=== PATIENT | male | born 1945 | race Caucasian/White ===

== ENCOUNTER 2022-08-22 09:35 | Outpatient (CLI) | payer MEDICARE, BC, SELFPAY ==
[2022-08-22 10:32] LABS: Chloride* 109 mmol/L (96-114); Potassium* 4.3 mmol/L (3.6-5.1); Sodium* 142 mmol/L (135-149)
[2022-08-22 10:35] LABS: Blood Urea Nitrogen* 15 mg/dL (7-30); Carbon Dioxide* 27 mmol/L (20-32); Cholesterol* 157 mg/dL (90-199); Creatinine* 0.8 mg/dL (0.5-1.5); Estimated Glomerular Filt Rate 91 ml/min
[2022-08-22 10:36] LABS: Calcium* 8.8 mg/dL (8.4-10.6); Glucose* 102 mg/dL (60-115); HDL Cholesterol* 49 mg/dL (>=40); LDL Cholesterol Calculated 88 mg/dL (<100); Triglycerides* 102 mg/dL (40-149)
[2022-08-22 11:15] LABS: PSA Screen* < 0.06 ng/mL (0.10-4.00)
== END 2022-08-22 09:36 | disposition home or self-care (01) ==
LOC: NFLDREF 09:35
PROVIDERS: PCP Family Medicine; Visit Provider Family Medicine
DX: E78.5 Hyperlipidemia, unspecified (principal); I10 Essential (primary) hypertension; R97.20 Elevated prostate specific antigen [PSA]
CPT/HCPCS: 80048; 80061; 84153

== ENCOUNTER 2023-06-11 09:14 | Outpatient (CLI) | payer MEDICARE, BC, SELFPAY ==
--- NOTE | 2023-06-11 09:15 | CRLHL7_ITS ---
For Patients: As a result of the 21st Century Cures Act, medical imaging exams and procedure reports are released immediately into your electronic medical record. You may view this report before your referring provider. If you have questions, please contact your health care provider. INDICATION: Low back pain. Spinal stenosis. TECHNIQUE: Multiplanar multisequence noncontrast MR images acquired through the lumbar spine. COMPARISON: None. FINDINGS: The lumbar lordosis is preserved. Vertebral heights maintained. No acute fracture. No T1 hypointense marrow replacing lesions. Normal conus terminates at L1-2. T12-L1: Mild disc degeneration. No spinal canal or neural foraminal narrowing. L1-2: Trace retrolisthesis. Moderate disc degeneration. Shallow circumferential disc bulge. No spinal canal or neural foraminal narrowing. L2-3: Mild retrolisthesis. Moderate disc degeneration and qmxg-dy-efnrrwrd disc height loss. Circumferential disc bulge. Mild facet arthropathy. Sxsl-bv-kdkedger spinal canal and left lateral recess narrowing. Mild bilateral neural foraminal narrowing. L3-4: Mild retrolisthesis. Moderately advanced disc degeneration and disc height loss. Moderate vertebral body edema. Posterior disc bulging and endplate spondylitic ridging. Mild left facet arthropathy. Thickening ligamentum flavum. Left dorsal synovial cyst measuring 7 mm. Chtu-zs-vyswnowu spinal canal narrowing. Moderate left and zchm-jl-ksburhlu right lateral recess narrowing. Geab-cj-jbfbkisk left and mild right neural foraminal narrowing. L4-5: Grade 1 anterolisthesis measuring 6 mm. Moderately advanced disc degeneration and right eccentric disc height loss. Posterior disc bulge. Advanced facet arthropathy. Thickening ligamentum flavum. Severe spinal canal and lateral recess stenosis. Moderately severe right and moderate left neural foraminal narrowing. L5-S1: Moderate disc degeneration. Posterior disc bulge. Moderate bilateral facet arthropathy. No spinal canal or neural foraminal narrowing. Sacroiliac joint degenerative changes. Multiple T2 hyperdense lesions the kidneys, most typical for renal cysts. IMPRESSION: 1. At L4-5, grade anterolisthesis and advanced facet arthropathy contribute to severe spinal canal and lateral recess stenosis. Moderately severe right and moderate left neural foraminal stenosis. 2. At L3-4, moderate left and mild to moderate right lateral recess narrowing. Mild to moderate spinal canal narrowing. Moderate discogenic vertebral body edema. Dictated by Rob Coyle MD @ 06/12/2023 6:59:57 PM (Electronically Signed)
== END 2023-06-11 09:15 | disposition home or self-care (01) ==
PROVIDERS: PCP Family Medicine; Visit Provider Family Medicine
DX: M54.50 Low back pain, unspecified (principal); M51.35 Other intervertebral disc degeneration, thoracolumbar region; M51.36 Other intervertebral disc degeneration, lumbar region; R29.818 Other symptoms and signs involving the nervous system
CPT/HCPCS: 72148

== ENCOUNTER 2023-08-29 08:20 | Outpatient (CLI) | payer MEDICARE, BC, SELFPAY | END 2023-08-29 08:21 | disposition home or self-care (01) | LOC: NFLDREF 09-10 11:45 | PROVIDERS: PCP Family Medicine; Referring Provider Family Medicine; Visit Provider Family Medicine | DX: E78.5 Hyperlipidemia, unspecified (principal); C61 Malignant neoplasm of prostate; Z79.899 Other long term (current) drug therapy | CPT/HCPCS: 80053; 80061; G0103 ==

== ENCOUNTER 2024-05-27 06:59 | Emergency (ER) | payer MEDICARE, BC, SELFPAY ==
[2024-05-27] VITALS (17 sets, daily range): BP systolic 138–175; BP diastolic 86–118; PULSE 81–105; RESP 20; TEMP 35.7; O2SAT 94–97; BMI 37.3
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
--- NOTE | 2024-05-27 08:27 | CRLHL7_ITS ---
For Patients: As a result of the Century Cures Act, medical imaging exams and procedure reports are released immediately into your electronic medical record. You may view this report before your referring provider. If you have questions, please contact your health care provider. Indication: Heel pain. Technique: Two view(s) of the left calcaneus. Comparison: None available. Findings: Limited evaluation of alignment on nonweightbearing images. Joint spaces are maintained. No acute fracture is identified. There is a small posterior calcaneal enthesophyte at the Achilles tendon insertion. Mild soft tissue thickening in the region of the distal Achilles tendon. Mild generalized soft tissue swelling. Impression: 1. No acute osseous abnormality identified. 2. Posterior calcaneal enthesophyte with mild thickening of the distal Achilles tendon. This could be further evaluated with ultrasound or MRI as clinically indicated on a nonemergent basis. Dictated by Delia Morrell MD @ 05/27/2024 8:53:03 AM (Electronically Signed)
--- OUTSIDE RECORDS SUMMARY | 2024-05-27 08:29 | XMS_ITS | Clinical Summary ---
Author Organization [facility] Address [place], [place] [address] Care Team Providers Care Political Science Professor Name Role Phone Jcarlos Miles MD Primary Care Provider [phone] Allergies No known active allergies Medications Medication Sig Dispensed Refills Start Date End Date Status aspirin chewable 81 mg chewable tablet Take 81 mg by mouth. 06/16/2018 Active atorvastatin (LIPITOR) 20 mg tablet TK 1 T PO HS 4 03/30/2019 Active losartan (COZAAR) 25 mg tablet TK 1 T PO D 4 03/30/2019 Active omega 2-yos-als-fish oil 100-160-1,000 mg cap 05/18/2018 Active polyethylene glycoL (MIRALAX) 17 gram/dose powder 04/25/2018 Active allopurinoL (ZYLOPRIM) 100 mg tablet TK 1 T PO QD 05/10/2020 Active furosemide (LASIX) 20 mg tablet TAKE 1/2 TABLET BY MOUTH DAILY NEEDED 07/27/2020 Active tamsulosin (FLOMAX) 0.4 mg capsule 06/27/2020 Active CPAPIndications:JHONNY on CPAP CPAP machine for home use at pressure 11 cmw, nasal mask x1/3month with nasal cushion x2/mo 1 Each 11 06/26/2023 Active CPAPIndications:JHONNY on CPAP Humidifier chamber x 1,Nasal mask with cushion x 1 every 3 months, Nasal pillows 2 x every month, Standard tubing x 1 every 3 months, Headgear x 1 every 6 months, Filters: Disposable x 2 per month & Reusable x 1 per 6 months Chinstrap 1 every 6 months, Length of Need: 99 months, Frequency of use: Daily 1 Each 08/22/2023 Active Active Problems Problem Noted Date Diagnosed Date JHONNY 05/2005? AHI-57 04/26/2013 Unspecified essential hypertension 08/25/2007 Pure hypercholesterolemia 08/25/2007 Obesity, unspecified 08/25/2007 Resolved Problems Problem Noted Date Diagnosed Date Resolved Date Unspecified sleep apnea 08/25/200704/07 Family History Medical History Relation Name Comments Hypertension Brother Heart Disease Father at age 60 Arthritis Maternal Grandmother had for 15 years. Heart Disease Mother had mild heart attack Osteoporosis Mother Relation Name Status Comments Brother Father Maternal Grandmother Mother Social History Tobacco Use Types Packs/Day Years Used Date Smoking Tobacco: Former Cigarettes Q uit: 04/19/2014 Smokeless Tobacco: Never Tobacco Cessation:Counseling Given: Yes Alcohol Use Standard Drinks/Week Comments Yes 0 (1 standard drink = 0.6 oz pur e alcohol) occasionally Social Connections Answer Date Recorded Frequency of Communication with Friends and Fami ly Not on file 08/22/2023 Financial Resource Strain Answer Date R ecorded Difficulty of Paying Living Expenses Not on file 07/07/2021 Difficulty of Paying Living Expenses Not on file 07/07/2021 Sex and Gender Information Value Date Recorded Sex Assigned at Not on file Gender Identity Not on file Sexual Orientation Not on file Obstetrics History Last Filed Vital Signs Vital Sign Reading Time Taken Comments Blood Pressure 155/80 08/22/2023 11:32 AM WEEKDAY BABYSITTER Pulse 74 08/22/2023 11:32 AM WEEKDAY BABYSITTER Temperature 36.6 C (97.8 F) 04/19/2019 10:31 AM CDT Respiratory Rate - - Oxygen Saturation 98% 08/22/2023 11: 32 AM WEEKDAY BABYSITTER Inhaled Oxygen Concentration - - Weight 132.1 kg (291 lb 3.2 oz) 024 11:32 AM WEEKDAY BABYSITTER Height 185.4 cm (6' 1) 08/22/2023 11:3 2 AM WEEKDAY BABYSITTER Body Mass Index 38.42 08/22/2023 11:32 AM WEEKDAY BABYSITTER Plan of Treatment Health Maintenance Due Date Last Done Comments Tdap 1956 Depression screening for age 12+ 1957 Hepatitis C screening for age 18-79 1963 Tetanus booster 1965 Zoster (shingles) series for age 50+ (1 of 2) 1995 Medicare Wellness for age 65+ 2010 Pneumococcal series for age 65+ (1 of 1 - PCV) 2010 RSV vaccine for adults or pr egnancy (1 - 1-dose 75+ series) 2020 COVID-19 vaccine series (2023- season) 2024 09/16/2020, 08/26/2020 Influenza for age 65+ 03/07/2024 BMI (ht and wt on same day) for age 18+ 08/22/2024 0 08/22/2023 Care Teams Political Science Professor Relationship Specialty Start Date End Date Jcarlos Miles MD PCP - General Family Practice 09/11/15
[2024-05-27 08:40] LABS: Basophils Absolute Auto 0.01 K/uL (0.00-0.30); Basophils Percent Auto 0.2 % (0.0-3.0); Eosinophils Absolute Auto 0.08 K/uL (0.00-0.50); Eosinophils Percent Auto 1.7 % (0.0-7.0); Hematocrit 42.4 % (37.0-53.0); Immature Granulocytes Abs Auto 0.01 K/uL (0.00-0.30); Immature Granulocytes Pct Auto 0.2 %; Lymphocytes Absolute Auto 1.04 K/uL (0.90-2.90); Lymphocytes Percent Auto 22.2 % (20-44); Mean Corpuscular HGB Conc 33 gm/dL (32-36); Mean Corpuscular Hemoglobin 30 pg (26-34); Mean Corpuscular Volume 91 fL (80-100); Monocytes Percent Auto 11.1 % (0.0-11.0); Neutrophils Absolute Auto 3.02 K/uL (1.7-7.0); Neutrophils Percent Auto 64.6 % (42.0-72.0); Platelet Count* 153 K/uL (140-440); RDW Coefficient of Variation % 13.7 % (11.5-15.5); Red Blood Count 4.66 m/uL (4.30-5.90); White Blood Count* 4.68 K/uL (4.50-11.00)
[2024-05-27 08:43] LABS: Slide Review Reflex No
[2024-05-27 08:52] LABS: Chloride* 105 mmol/L (96-114); Potassium* 4.6 mmol/L (3.6-5.1); Sodium* 142 mmol/L (135-149)
[2024-05-27 08:55] LABS: Anion Gap 7 mEq/L (7-15); Blood Urea Nitrogen* 16 mg/dL (7-30); Calcium* 9.3 mg/dL (8.4-10.6); Carbon Dioxide* 30 mmol/L (20-32); Creatinine* 0.9 mg/dL (0.5-1.5); Est. Creatinine Clearance* 65.74; Estimated Glomerular Filt Rate 87 ml/min; Glucose* 109 mg/dL (60-115)
--- NOTE | 2024-05-27 10:30 | ED.NURSE ---
Zio patch placed on pt, pt tolerated well. Pt stated understanding of education.
== END 2024-05-27 10:35 | disposition home or self-care (01) ==
PROVIDERS: Emergency Provider Emergency Medicine; PCP Family Medicine
DX: I48.91 Unspecified atrial fibrillation (principal)
CPT/HCPCS: 36415; 73650; 80048; 84443; 85025; 93005; 93246; 99284

== ENCOUNTER 2024-05-31 15:56 | Outpatient (CLI) | payer MEDICARE, BC, SELFPAY ==
--- OUTSIDE RECORDS SUMMARY | 2024-05-31 16:00 | XMS_ITS | Continuity of Care Document ---
Author Organization [facility] Address [address] [place] [address] Phone Care Team Providers Care Curtain Hemmer Automatic Name Role Phone Dexter Smiley MD Unavailable Unavailable Allergies, Adverse Reactions, Alerts Substance Reaction Status Criticality No Known Allergies Active No Inform ation Procedures Procedure Date Office/Outpatient Visit,[facility] 2023 Advance Directives Directive Yes / No Effective Date File Name No Information Encounters Encounter Description Practice Location Reason(s) For Visit Diagnoses Date Provider Providers Copied on Encounter Office/Outpat ient Visit,[place], [facility], [address], [place], [place], [id number], [place] tel:[phone] [facility], lumbar regionSpinal stenosis, lumbosacral region 4 Baljit Renteria. [facility], [address], [place], [place], [id number] , [place]. tel:[phone] [facility], [place], [address]. tel:[phone] Family History Family Member Type Diagnosis Age At Onset Father Problem (finding) Cardiovascular disease Brother Problem (finding) Hypertension Mother Problem (finding) Ankylosing spondylitis Father Problem (finding) Hypertension Payers Payer name Insurance type Covered democr[id number] Medicare [facility] [id number] 1 Social History Type Description Quantity Date Captured Comments Alcohol Use Details Caffeine Use Details Unknown Tobacco Use Status Smoking Status Former smoker Non-Smoking Tobacco Use Details : No Details Available : No Details Available Sex Male Vital Signs Date / Time: Height Weight BMI Pulse Rate Blood Pressure Temperature Respiratory Rate Body Surface Area Head Circumference Head Circ. Percentile Wt./Chaitanya. Percentile BMI percentile Pulse Ox Inhaled Ox 2:55 PM 73.00 in 124.738 kg (275.00 lbs) 36.2 8 kg/m eter (2) Chief Complaint And Reason For Visit No Information Reason For Referral Reason For Referral No Information History Of Present Illness Encounter Date Complaint History Of Prese nt Illness No Information Functional Status Date Functional Assessmen t No Information Instructions Date Instruction Additional Infor mation No Information Assessments Type Assessment Date No Information Patient Care Teams Name Effective Dates (start - stop) Status Members No Information
--- OUTSIDE RECORDS SUMMARY | 2024-05-31 16:00 | XMS_ITS | Clinical Summary ---
Author Organization [facility] Address [place], [place] [address] Care Team Providers Care Septic Tank Setter Name Role Phone Jcarlos Miles MD Primary Care Provider Allergies No known active allergies Medications Medication Sig Dispensed Refills Start Date End Date Status aspirin chewable 81 mg chewable tablet Take 81 mg by mouth. 06/16/2018 Active atorvastatin (LIPITOR) 20 mg tablet TK 1 T PO HS 4 03/30/2019 Active losartan (COZAAR) 25 mg tablet TK 1 T PO D 4 03/30/2019 Active omega 1-euk-ldw-fish oil 100-160-1,000 mg cap 05/18/2018 Active polyethylene [...] Comments Blood Pressure 155/80 08/22/2023 11:32 AM FOOD AND NUTRITION SERVICES SUPERVISOR Pulse 74 08/22/2023 11:32 AM FOOD AND NUTRITION SERVICES SUPERVISOR Temperature 36.6 C (97.8 F) 04/19/2019 10:31 AM CDT Respiratory Rate - - Oxygen Saturation 98% 08/22/2023 11: 32 AM FOOD AND NUTRITION SERVICES SUPERVISOR Inhaled Oxygen Concentration - - Weight 132.1 kg (291 lb 3.2 oz) 024 11:32 AM FOOD AND NUTRITION SERVICES SUPERVISOR Height 185.4 cm (6' 1) 08/22/2023 11:3 2 AM FOOD AND NUTRITION SERVICES SUPERVISOR Body Mass Index 38.42 08/22/2023 11:32 AM FOOD AND NUTRITION SERVICES SUPERVISOR Plan of Treatment Health Maintenance Due Date [...] age 18+ 08/22/2024 0 08/22/2023 Care Teams Septic Tank Setter Relationship Specialty Start Date End Date Jcarlos Miles MD PCP - General Family Practice 09/11/15
== END 2024-05-31 15:57 | disposition home or self-care (01) ==
LOC: NFLDREF 15:58
PROVIDERS: PCP Family Medicine; Visit Provider Family Medicine
DX: I48.91 Unspecified atrial fibrillation (principal)
CPT/HCPCS: 84443

== ENCOUNTER 2024-06-09 08:54 | Outpatient (CLI) | payer MEDICARE, BC, SELFPAY ==
[2024-06-09] MEDS: PERFLUTREN LIPID MICROSPHERES 2 ML VIAL IVP (09:45)
== END 2024-06-09 08:55 | disposition home or self-care (01) ==
LOC: RAD 08:55
PROVIDERS: PCP Family Medicine; Visit Provider Family Medicine
DX: I48.91 Unspecified atrial fibrillation (principal); I51.7 Cardiomegaly; I34.0 Nonrheumatic mitral (valve) insufficiency; I07.1 Rheumatic tricuspid insufficiency
CPT/HCPCS: 93306; Q9957

== ENCOUNTER 2024-11-09 08:30 | Outpatient (CLI) | payer MEDICARE, BC, SELFPAY | END 2024-11-09 08:31 | disposition home or self-care (01) | LOC: NFLDREF 11-14 05:38 | PROVIDERS: PCP Family Medicine; Referring Provider Family Medicine; Visit Provider Family Medicine | DX: E78.5 Hyperlipidemia, unspecified (principal); I10 Essential (primary) hypertension; Z12.5 Encounter for screening for malignant neoplasm of prostate | CPT/HCPCS: 80053; 80061; G0103 ==